=== PATIENT | female | born 1965 | race Asian ===

== ENCOUNTER 2019-04-09 09:29 | Emergency (ER) | payer OTHER ==
[~2019-04-09] VITALS: Ht 157.5 cm; Wt 71.7 kg
[2019-04-09 09:45] VITALS: BP 130/94
--- NOTE | 2019-04-09 10:00 | NUR ---
PATIENT PRESENTS TO THE ER WITH C/O VAGINAL BLEEDING, LOWER ABDOMINAL PAIN, AND INTERMITTENT RIGHT LOWER BACK PAIN X 4 DAYS. ALSO C/O NAUSEA, AND DIARRHEA X 2 WEEKS. DENIES DYSURIA, VOMITING. PT STATES SHE IS USING 1 THIN PAD Q DAY. DESCRIBES VAGINAL BLEEDING BRIGHT RED DURING THE DAY, AND BROWN AT NIGHT. MENOPAUSAL X 2 YRS MED HX: THYROID DISORDER
[2019-04-09 10:37] LABS: BASOPHILS # (AUTO) 0.2 K/uL (0.00-0.22); BASOPHILS % (AUTO) 2.6 % (0.0-2.0); EOSINOPHILS # (AUTO) 0.1 K/uL (0-0.4); EOSINOPHILS % (AUTO) 1.9 % (0.0-4.0); HEMATOCRIT 41.1 % (36-48); HEMOGLOBIN 13.9 g/dL (12.0-16.0); LYMPHOCYTES % (AUTO) 29.9 % (20.5-51.1); MEAN CORPUSCULAR HEMOGLOBIN 30 pg (27-31); MEAN CORPUSCULAR HGB CONC 34 g/dL (33-37); MEAN CORPUSCULAR VOLUME 88.8 fL (80-94); MONOCYTES # (AUTO) 0.3 K/uL (0.8-1.0); MONOCYTES % (AUTO) 4.6 % (1.7-9.3); NEUTROPHILS # (AUTO) 4.1 K/uL (1.8-7.7); PLATELET COUNT (AUTO) 173 K/uL (140-450); RED BLOOD CELL COUNT(AUTO) 4.63 MIL/uL (4.20-5.40); RED CELL DISTRIBUTION WIDTH 12.7 % (11.6-13.7); WHITE BLOOD COUNT (AUTO) 6.7 K/uL (4.8-10.8)
[2019-04-09 10:55] LABS: PROTHROMBIN TIME 9.8 secs (10.8-13.4)
[2019-04-09 10:56] LABS: ALBUMIN 3.8 g/dL (3.4-5.0); ANION GAP 8.5 (8-16); CARBON DIOXIDE 30.5 mmol/L (21-32); CREATININE 0.8 mg/dL (0.6-1.3); TOTAL BILIRUBIN 0.8 mg/dL (0.0-1.0)
--- NOTE | 2019-04-09 11:27 | NUR ---
Patient discharged by Dr. Marsh. Written and verbal after care instructions given and explained by Dr. Marsh. Patient verbalized understanding. Ambulatory with steady gait. All questions addressed prior to discharge by Dr. Marsh. Advised to follow up with PMD. Addendum: 04/09/19 at 1258 by GREY REAL TIME [id number]
--- NOTE | 2019-04-09 11:57 | NUR ---
Patient discharged by Dr. Marsh. Written and verbal after care instructions given and explained by Dr. Marsh. Patient verbalized understanding. Ambulatory with steady gait. All questions addressed prior to discharge by Dr. Marsh. Advised to follow up with PMD.
[2019-04-09 12:20] VITALS: BP 130/94
== END 2019-04-09 11:57 | disposition home or self-care (01) ==
LOC: MED 09:29
DX: N93.8 Other specified abnormal uterine and vaginal bleeding (principal); E07.9 Disorder of thyroid, unspecified
CPT/HCPCS: 36415; 76830; 80053; 85025; 85610; 85730; 86900; 86901; 99284; Q0092